=== PATIENT | male | born 2000 | race Caucasian/White ===

== ENCOUNTER 2018-12-05 00:31 | Emergency (ER) | payer OTHER ==
--- NOTE | 2018-12-05 00:34 | ER Report ---
History and Physical Time Seen By MD: 00:33 HPI/ROS CHIEF COMPLAINT: Cough, vomiting HISTORY OF PRESENT ILLNESS: 16-year-old male presents with a cough for 4 days. He doesn't sleep he feels like his mucous plug in his lung. Tonight he began v omiting intractably. Patient comes in the emergency room for evaluation. He is grossly pale. Vital signs are stable. Trying [id number] medications without improvement. Patient notes a mild epigastric pain. REVIEW OF SYSTEMS: Respiratory: As above Cardiovascular: No chest pain, no palpitations. Gastrointestinal: As above Musculoskeletal: No back pain. Allergies: Coded Allergies: No Known Drug Allergies (Unverified , 12/05/18) Home Meds Active Scripts Promethazine HCl/Codeine (Prometh-Codein 6.25-10 mg/5 ml) 5 Ml Syrup, 5-10 ML PO Q4H PRN for COUGH, #120 Prov:VALENTÍN TALAMANTES DO 12/05/18 Ondansetron 4 Mg Odt (ONDANSETRON 4 MG ODT) 4 Mg Tab.rapdis, 4 MG PO Q6H PRN for NAUSEA/VOMITING, #10 TAB Prov:VALENTÍN TALAMANTES DO 12/05/18 Cefuroxime Axetil (CEFUROXIME) 500 Mg Tablet, 500 MG PO BID for infection, #14 TAB Prov:VALENTÍN TALAMANTES DO 12/05/18 Constitutional Vital Sign - Last 24 Hours 12/05/18 12/05/18 12/05/18 12/05/18 00:31 00:35 00:39 01:00 Temp 99.7 Pulse ??? 152 142 Resp 18 20 B/P (MAP) 146/99 146/99 (115) Pulse Ox 90 O2 Delivery Room Air 12/05/18 12/05/18 12/05/18 12/05/18 01:01 01:04 01:30 01:31 Pulse 149 146 142 Resp 20 B/P (MAP) 122/28 (59) Pulse Ox 97 91 12/05/18 12/05/18 12/05/18 02:00 02:01 02:30 Pulse 131 B/P (MAP) 104/90 (95) 118/79 (92) Pulse Ox 91 Intake and Output 12/04/18 12/04/18 12/05/18 15:01 23:01 07:01 Intake Total 1000 ml Balance 1000 ml Physical Exam Vital signs stable, tachycardic, low-grade fever, pulse ox normal General Appearance: The patient is alert, has no immediate need for airway protection and no current signs of toxicity., Pale appearing, skin warm and dry HEENT: Pupils equal and round no injection. TMs normal, oropharynx redness or exudate Respiratory: Chest is non tender, lungs are clear to auscultation. Cardiac: regular rate and rhythm Gastrointestinal: Abdomen is soft and non tender, no masses, bowel sounds normal. Musculoskeletal: Neck: Neck is supple and non tender. Extremities have full range of motion and are non tender. No edema Skin: No rashes or lesions. DIFFERENTIAL DIAGNOSIS: After history and physical exam differential diagnosis was considered for shortness of breath including but not limited to pulmonary infectious process, COPD, asthma, pulmonary embolus and congestive heart failure. Additionally,abdominal pain including but not limited to appendicitis, cholecystitis, gastritis and urinary tract infection. Medical Decision Making Data Points Result Diagram: 12/05/18 0100 12/05/18 0100 Laboratory Hematology Test 12/05/18 00:36 12/05/18 01:00 Urine Color Yellow Urine Clarity Clear Urine pH 6.0 pH (4.8-9.5) Urine Specific [place] 1.005 Urine Protein Negative mg/dL (NEGATIVE) Urine Glucose (UA) Negative mg/dL (NEGATIVE) Urine Ketones Trace mg/dL (NEGATIVE) Urine Blood Negative (NEGATIVE) Urine Nitrite Negative (NEGATIVE) Urine Bilirubin Negative (NEGATIVE) Urine Urobilinogen Negative mg/dL (0.2-1.9) Urine Leukocyte Esterase Negative (NEGATIVE) Urine RBC 1 /HPF (0-2/HPF) Urine WBC 1 /HPF (0-5/HPF) Urine Squamous Epithelial Cells Few /LPF (</=FEW) Urine Bacteria Negative /HPF (NONE-FEW) Urine Mucus None /HPF (NONE-FEW) Red Blood Count 5.54 M/uL (4.00-5.60) Mean Corpuscular Volume 82.5 fL (80.0-96.0) Mean Corpuscular Hemoglobin 28.7 pg (26.0-33.0) Mean Corpuscular Hemoglobin Concent 34.8 g/dL (32.0-36.0) Red Cell Distribution Width 12.4 % (11.5-14.5) Mean Platelet Volume 7.8 fL (7.2-11.1) Neutrophils (%) (Auto) 65.3 % (39.4-72.5) Lymphocytes (%) (Auto) 23.8 % (17.6-49.6) Monocytes (%) (Auto) 9.5 % (4.1-12.4) Eosinophils (%) (Auto) 0.7 % (0.4-6.7) Basophils (%) (Auto) 0.7 % (0.3-1.4) Nucleated RBC Relative Count (auto) 0.1 /100WBC Neutrophils # (Auto) 8.5 K/uL (2.0-7.4) Lymphocytes # (Auto) 3.1 K/uL (1.3-3.6) Monocytes # (Auto) 1.2 K/uL (0.3-1.0) Eosinophils # (Auto) 0.1 K/uL (0.0-0.5) Basophils # (Auto) 0.1 K/uL (0.0-0.1) Nucleated RBC Absolute Count (auto) 0.01 K/uL Sodium Level 138 mmol/L (137-145) Potassium Level 3.4 mmol/L (3.5-5.0) Chloride Level 100 mmol/L (98-107) Carbon Dioxide Level 20 mmol/L (22-30) Blood Urea Nitrogen 8 mg/dl (9-21) Creatinine 0.80 mg/dl (0.66-1.25) Glomerular Filtration Rate Calc > 60.0 Random Glucose 113 mg/dl (75-110) Lactate 1.3 mmol/L (0.7-2.1) Calcium Level 9.4 mg/dl (8.4-10.2) Total Bilirubin 1.1 mg/dl (0.2-1.3) Aspartate Amino Transf (AST/SGOT) 56 U/L (0-35) Alanine Aminotransferase (ALT/SGPT) 71 U/L (0-56) Alkaline Phosphatase 78 U/L (0-126) Total Protein 8.0 g/dl (6.3-8.2) Albumin 4.4 g/dl (3.5-5.0) Amylase Level 54 U/L (0-110) Lipase 111 U/L (23-300) Chemistry Test 12/05/18 00:36 12/05/18 01:00 Urine Color Yellow Urine Clarity Clear Urine pH 6.0 pH (4.8-9.5) Urine Specific [place] 1.005 Urine Protein Negative mg/dL (NEGATIVE) Urine Glucose (UA) Negative mg/dL (NEGATIVE) Urine Ketones Trace mg/dL (NEGATIVE) Urine Blood Negative (NEGATIVE) Urine Nitrite Negative (NEGATIVE) Urine Bilirubin Negative (NEGATIVE) Urine Urobilinogen Negative mg/dL (0.2-1.9) Urine Leukocyte Esterase Negative (NEGATIVE) Urine RBC 1 /HPF (0-2/HPF) Urine WBC 1 /HPF (0-5/HPF) Urine Squamous Epithelial Cells Few /LPF (</=FEW) Urine Bacteria Negative /HPF (NONE-FEW) Urine Mucus None /HPF (NONE-FEW) White Blood Count 13.0 k/uL (4.5-11.0) Red Blood Count 5.54 M/uL (4.00-5.60) Hemoglobin 15.9 g/dL (14.0-18.0) Hematocrit 45.7 % (42.0-52.0) Mean Corpuscular Volume 82.5 fL (80.0-96.0) Mean Corpuscular Hemoglobin 28.7 pg (26.0-33.0) Mean Corpuscular Hemoglobin Concent 34.8 g/dL (32.0-36.0) Red Cell Distribution Width 12.4 % (11.5-14.5) Platelet Count 366 K/uL (150-450) Mean Platelet Volume 7.8 fL (7.2-11.1) Neutrophils (%) (Auto) 65.3 % (39.4-72.5) Lymphocytes (%) (Auto) 23.8 % (17.6-49.6) Monocytes (%) (Auto) 9.5 % (4.1-12.4) Eosinophils (%) (Auto) 0.7 % (0.4-6.7) Basophils (%) (Auto) 0.7 % (0.3-1.4) Nucleated RBC Relative Count (auto) 0.1 /100WBC Neutrophils # (Auto) 8.5 K/uL (2.0-7.4) Lymphocytes # (Auto) 3.1 K/uL (1.3-3.6) Monocytes # (Auto) 1.2 K/uL (0.3-1.0) Eosinophils # (Auto) 0.1 K/uL (0.0-0.5) Basophils # (Auto) 0.1 K/uL (0.0-0.1) Nucleated RBC Absolute Count (auto) 0.01 K/uL Glomerular Filtration Rate Calc > 60.0 Lactate 1.3 mmol/L (0.7-2.1) Calcium Level 9.4 mg/dl (8.4-10.2) Total Bilirubin 1.1 mg/dl (0.2-1.3) Aspartate Amino Transf (AST/SGOT) 56 U/L (0-35) Alanine Aminotransferase (ALT/SGPT) 71 U/L (0-56) Alkaline Phosphatase 78 U/L (0-126) Total Protein 8.0 g/dl (6.3-8.2) Albumin 4.4 g/dl (3.5-5.0) Amylase Level 54 U/L (0-110) Lipase 111 U/L (23-300) Urinalysis Test 12/05/18 00:36 Urine Color Yellow Urine Clarity Clear Urine pH 6.0 pH (4.8-9.5) Urine Specific [place] 1.005 Urine Protein Negative mg/dL (NEGATIVE) Urine Glucose (UA) Negative mg/dL (NEGATIVE) Urine Ketones Trace mg/dL (NEGATIVE) Urine Blood Negative (NEGATIVE) Urine Nitrite Negative (NEGATIVE) Urine Bilirubin Negative (NEGATIVE) Urine Urobilinogen Negative mg/dL (0.2-1.9) Urine Leukocyte Esterase Negative (NEGATIVE) Urine RBC 1 /HPF (0-2/HPF) Urine WBC 1 /HPF (0-5/HPF) Urine Squamous Epithelial Cells Few /LPF (</=FEW) Urine Bacteria Negative /HPF (NONE-FEW) Urine Mucus None /HPF (NONE-FEW) EKG/Imaging Imaging X-ray: Two-view chest x-ray was obtained. I viewed the images myself on the PACS system. My interpretation of the images is: There is right middle lobe consolidation consistent with pneumonia. The radiologist interpretation had no clinically significant variation from this interpretation. ED Course/Re-evaluation Clinical Indication for ER IV: Hydration, IV Access ED Course Patient was admitted to an examination room. H&P was done. The differential diagnosis was considered. Patient with 4 days of cough. Tonight he has intractable vomiting which brought in to the ER. He notes some epigastric pain. Patient describes it as a mucous plug that he is unable to clear. He denies history of asthma or allergies. Patient's treated with IV fluid hydration, Zofran 4 mg. His white blood cell count comes back at 13,000 with a left shift. A chest x-ray shows a right middle lobe infiltrate. Patient's treated with Rocephin 1 g IV. He'll be discharged home on Ceftin 500 mg by mouth twice a day. Phenergan with codeine cough syrup and he is also given Zofran for home use. Patient advised to follow-up in 2-3 days, If he is unimproved. Decision to Disposition Date: Dec 05, 2018 Decision to Disposition Time: 02:31 Depart Departure Latest Vital Signs Vital Signs Date Time Temp Pulse Resp B/P (MAP) Pulse Ox O2 Delivery O2 Flow Rate FiO2 12/05/18 02:30 118/79 (92) 12/05/18 02:01 131 91 12/05/18 01:04 20 12/05/18 00:35 99.7 Room Air Impression: Primary Impression: Right middle lobe pneumonia Additional Impression: Vomiting Condition: Improved Disposition: HOME OR SELF-CARE Referrals: YARIEL SALCEDO MD, FARRUKH MD New Scripts Promethazine HCl/Codeine (Prometh-Codein 6.25-10 mg/5 ml) 5 Ml Syrup 5-10 ML PO Q4H PRN for COUGH, #120 Prov: VALENTÍN TALAMANTES DO 12/05/18 Ondansetron 4 Mg Odt (ONDANSETRON 4 MG ODT) 4 Mg Tab.rapdis 4 MG PO Q6H PRN for NAUSEA/VOMITING, #10 TAB Prov: VALENTÍN TALAMANTES DO 12/05/18 Cefuroxime Axetil (CEFUROXIME) 500 Mg Tablet 500 MG PO BID for infection, #14 TAB Prov: VALENTÍN TALAMANTES DO 12/05/18 Patient Instructions: Bacterial Pneumonia (ED) Additional Instructions: Take medications as prescribed Drink plenty of fluids Use cough medicine as needed Follow-up with primary care doctor if unimproved in 3-5 days or the physician jennie marino on your paperwork Problem Qualifiers Primary Impression: Right middle lobe pneumonia Pneumonia type: due to unspecified organism Qualified Codes: J18.1 - Lobar pneumonia, unspecified organism Additional Impression: Vomiting Vomiting type: unspecified Vomiting Intractability: intractable Nausea presence: with nausea Qualified Codes: R11.2 - Nausea with vomiting, unspecified VALENTÍN TALAMANTES DO Dec 05, 2018 00:34
[2018-12-05] MEDS ORDERED: ONDANSETRON 4 MG/2 ML VIAL IVP ONE (00:40)
[2018-12-05] MEDS ORDERED: NS(*) 0.9% 1000 ML BAG 1,000 ML IV ONE (00:40)
[2018-12-05] MEDS ORDERED: ALBUTEROL/IPRATROPIUM 3 ML NEB NEB ONE (00:40)
[2018-12-05 01:26] LABS: PLATELET COUNT, AUTOMATED 366 K/uL (150-450)
--- NOTE | 2018-12-05 02:12 | RADIOLOGY IMAGING REPORT ---
FACILITY: [facility] - [place] PATIENT NAME: Mark Joya : 2000 MR: [id number] V: [id number] EXAM DATE: ORDERING PHYSICIAN: VALENTÍN TALAMANTES TECHNOLOGIST[place] [facility] [place]a : 2000 Visit/Account:[id number] Date of Sevice: 12/05/2018 CHEST: Indication: Persistent cough. Technique: Frontal and lateral views were obtained. Comparison: None available. Skeletal and soft tissue structures: There appears to be minimal scoliosis in the thoracic spine. No acute skeletal deformity is identified. Heart and mediastinum: Within normal limits. Lung delarosa: There is ill-defined parenchymal consolidation in the right middle lobe, compatible with acute pneumonia. The lungs are otherwise clear. Pleural spaces: No evidence of effusion or pleural thickening. Impression: Right middle lobe consolidation, compatible with acute pneumonia. Report Dictated By: Mann Montanez MD at 12/05/2018 2:03 AM Report E-Signed By: Mann Montanez MD at 12/05/2018 2:05 AM WSN:[id number]
[2018-12-05 02:30] VITALS: BP 118/79
[2018-12-05] MEDS ORDERED: CEFU500T10 PO (02:35)
[2018-12-05] MEDS ORDERED: cefTRIAXone 1 GM VIAL IVP ONE (02:35)
[2018-12-05] MEDS ORDERED: ONDA4TAB9 PO (02:35)
[2018-12-05] MEDS ORDERED: PROM5SYR PO (02:35)
[2018-12-05] MEDS ORDERED: ONDANSETRON 4 MG ODT TH SL ONE (02:40)
[2018-12-05] MEDS ORDERED: PROMETH/COD SYRP 6.25-10MG/5ML PO ONE (02:40)
== END 2018-12-05 03:19 | disposition home or self-care (01) ==
LOC: ER 00:43
DX: J18.1 Lobar pneumonia, unspecified organism (principal); R11.2 Nausea with vomiting, unspecified
CPT/HCPCS: 71046; 81001; 82150; 83605; 83690; 85025; 94640; 96361; 96374; 96375; 99284; J0696; J2405; J7030; J7620; S0119; 82040; 82247; 82310; 82374; 82435; 82565; 82947; 84075; 84132; 84155; 84295; 84450; 84460; 84520